=== PATIENT | male | born 1980 | race Caucasian/White ===

== ENCOUNTER 2017-02-28 20:25 | Observation (INO) | payer MEDICARE, MEDICAID ==
[~2017-02-28] VITALS: Ht 182.9 cm; Wt 104.5 kg
[2017-02-28] MEDS ORDERED: ZIPRASIDONE 20 MG INJ IM ONE ×2 (20:34→21:00)
[2017-02-28] MEDS: PLEASE ENTER HEIGHT AND WEIGHT MC SCH (21:00)
[2017-02-28 21:54] LABS: ASPARTATE AMINO TRANSFERASE 38 U/L (15-37); BLOOD UREA NITROGEN 16 mg/dL (7-18)
[2017-02-28 21:56] LABS: ACETAMINOPHEN < 2 mcg/mL (10-30); HEMOGLOBIN 13.2 g/dL (13.7-18.0); WHITE BLOOD COUNT 10.9 x10^3/uL (3.4-10)
[2017-03-01] MEDS: PLEASE ENTER ALLERGIES MC SCH ×4 (00:21→03:33)
[2017-03-01] MEDS ORDERED: EPINEPHRINE 1 MG/ML, 1ML ONE (00:49)
[2017-03-01 02:06] LABS: DAU SCREEN DISCLAIMER
[2017-03-01] MEDS ORDERED: LORazepam 1MG TABLET ONE (03:27)
[2017-03-01] MEDS ORDERED: LORazepam 1MG TABLET PO ONE (03:30)
[2017-03-01] MEDS: PLEASE ENTER HEIGHT AND WEIGHT MC SCH (05:00)
[2017-03-01] MEDS: OLANZAPINE 2.5 MG TABLET PO SCH ×2 (06:01→07:10)
[2017-03-02] MEDS ORDERED: POTASSIUM CHLORIDE 20 MEQ TAB.ER.PRT ONE (05:29)
[2017-03-02] MEDS ORDERED: POTASSIUM CHLORIDE 20 MEQ TAB.ER.PRT PO ONE (05:30)
[2017-03-02] MEDS ORDERED: ACETAMINOPHEN 325 MG TABLET PO PRN ×2 (08:30→18:30)
[2017-03-02] MEDS ORDERED: ONDANSETRON ODT 4 MG PO PRN ×2 (08:30→18:30)
[2017-03-02] MEDS: ENOXAPARIN 40 MG/0.4 ML SQ SCH (08:30)
[2017-03-02] MEDS ORDERED: DOCUSATE 100 MG CAPSULE PO PRN ×2 (08:30→18:30)
[2017-03-02] MEDS: NICOTINE 21 MG/24 HR PATCH.TD24 TD SCH (08:30)
[2017-03-02 08:55] VITALS: BP 110/51
[2017-03-02] MEDS: OLANZAPINE 2.5 MG TABLET PO SCH ×3 (09:00→20:31)
[2017-03-02 09:08] VITALS: BP 110/51
[2017-03-02] MEDS: HYDROcodone/APAP 5/325 TABLET PO PRN (11:19)
[2017-03-02 19:37] VITALS: BP 117/70
[2017-03-03 08:00] VITALS: BP 122/80
[2017-03-03] MEDS: HYDROcodone/APAP 5/325 TABLET PO PRN (09:00)
[2017-03-03] MEDS: ENOXAPARIN 40 MG/0.4 ML SQ SCH (09:00)
[2017-03-03] MEDS: OLANZAPINE 2.5 MG TABLET PO SCH ×2 (09:01→20:29)
[2017-03-03] MEDS: NICOTINE 21 MG/24 HR PATCH.TD24 TD SCH (09:01)
[2017-03-03] MEDS ORDERED: OLAN2.5T10 PO (11:11)
[2017-03-03 19:23] VITALS: BP 95/58
[2017-03-03 20:12] VITALS: BP 125/64
[2017-03-04 07:03] VITALS: BP 105/60
[2017-03-04] MEDS: NICOTINE 21 MG/24 HR PATCH.TD24 TD SCH (09:26)
[2017-03-04] MEDS: OLANZAPINE 2.5 MG TABLET PO SCH ×2 (09:26→20:33)
[2017-03-04] MEDS: ENOXAPARIN 40 MG/0.4 ML SQ SCH (09:26)
[2017-03-04] MEDS: HYDROcodone/APAP 5/325 TABLET PO PRN (09:26)
[2017-03-04 19:27] VITALS: BP 118/71
[2017-03-05 08:00] VITALS: BP 117/67
[2017-03-05] MEDS: NICOTINE 21 MG/24 HR PATCH.TD24 TD SCH (08:30)
[2017-03-05 08:37] VITALS: BP 101/67
[2017-03-05] MEDS: ENOXAPARIN 40 MG/0.4 ML SQ SCH (09:18)
[2017-03-05] MEDS: OLANZAPINE 2.5 MG TABLET PO SCH ×2 (09:25→21:43)
[2017-03-05 19:41] VITALS: BP 98/49
[2017-03-06 07:59] VITALS: BP 118/71
[2017-03-06] MEDS: NICOTINE 21 MG/24 HR PATCH.TD24 TD SCH (08:59)
[2017-03-06] MEDS: ENOXAPARIN 40 MG/0.4 ML SQ SCH (08:59)
[2017-03-06] MEDS: OLANZAPINE 2.5 MG TABLET PO SCH ×2 (09:00→20:05)
[2017-03-06 19:38] VITALS: BP 108/76
[2017-03-07 07:44] VITALS: BP 106/68
[2017-03-07] MEDS: NICOTINE 21 MG/24 HR PATCH.TD24 TD SCH (07:47)
[2017-03-07] MEDS: OLANZAPINE 2.5 MG TABLET PO SCH ×2 (07:47→20:03)
[2017-03-07] MEDS: ENOXAPARIN 40 MG/0.4 ML SQ SCH (07:49)
[2017-03-07 13:44] LABS: HEMATOCRIT 44.9 % (39.2-51.8); WHITE BLOOD COUNT 6.6 x10^3/uL (3.4-10)
[2017-03-07] MEDS: HYDROcodone/APAP 5/325 TABLET PO PRN (19:00)
[2017-03-07 19:46] VITALS: BP 97/63
[2017-03-08 08:12] VITALS: BP 99/55
[2017-03-08] MEDS: ENOXAPARIN 40 MG/0.4 ML SQ SCH (08:30)
[2017-03-08] MEDS: OLANZAPINE 2.5 MG TABLET PO SCH (08:32)
[2017-03-08] MEDS: NICOTINE 21 MG/24 HR PATCH.TD24 TD SCH (08:33)
[2017-03-08] MEDS: HYDROcodone/APAP 5/325 TABLET PO PRN (09:43)
== END 2017-03-08 09:45 ==
LOC: ED 20:54 → EDIP 03-02 06:09 → 3E 03-02 08:51
PROVIDERS: ADMIT Internal Medicine; ATTEND Internal Medicine
DX: F30.2 Manic episode, severe with psychotic symptoms (principal); E87.6 Hypokalemia; D63.8 Anemia in other chronic diseases classified elsewhere; F15.99 Other stimulant use, unspecified with unspecified stimulant-induced disorder; F17.210 Nicotine dependence, cigarettes, uncomplicated; R44.3 Hallucinations, unspecified; Z59.0 Homelessness; Z78.1 Physical restraint status; Z81.8 Family history of other mental and behavioral disorders
CPT/HCPCS: 36415; 80053; 80307; 80329; 82140; 83735; 84132; 84443; 85025; 96372; 99285; G0378; J1650; J3486; G0480

== ENCOUNTER 2017-03-26 09:31 | Emergency (ER) | payer MEDICARE, MEDICAID ==
[~2017-03-26] VITALS: Ht 177.8 cm; Wt 108.0 kg
[~2017-03-26 09:31] MED LIST: OLAN2.5T10 PO
[2017-03-26] MEDS ORDERED: Risperidone PO (09:39)
[2017-03-26] MEDS ORDERED: ZIPRASIDONE 20 MG INJ IM ONE ×4 (09:47→23:00)
[2017-03-26] MEDS ORDERED: PLEASE ENTER HEIGHT AND WEIGHT MC SCH (10:00)
[2017-03-26 10:28] LABS: HEMATOCRIT 38.4 % (39.2-51.8); HEMOGLOBIN 13.3 g/dL (13.7-18.0); WHITE BLOOD COUNT 11.5 x10^3/uL (3.4-10)
[2017-03-26 10:40] LABS: ASPARTATE AMINO TRANSFERASE 26 U/L (15-37); BLOOD UREA NITROGEN 22 mg/dL (7-18)
[2017-03-26 10:48] LABS: ACETAMINOPHEN < 2 mcg/mL (10-30)
[2017-03-26 12:12] LABS: DAU SCREEN DISCLAIMER
[2017-03-27] MEDS ORDERED: HALOPERIDOL 5 MG/ML IM ONE (01:30)
[2017-03-27] MEDS ORDERED: LORazepam 2 MG/ML, 1ML IM ONE (01:30)
[2017-03-27] MEDS ORDERED: DIPHENHYDRAMINE 50 MG/ML, 1ML IM ONE (01:30)
[2017-03-27] MEDS ORDERED: LORazepam 2 MG/ML, 1ML ONE (01:47)
[2017-03-27] MEDS ORDERED: DIPHENHYDRAMINE 50 MG/ML, 1ML ONE (01:48)
[2017-03-27] MEDS ORDERED: HALOPERIDOL 5 MG/ML ONE (01:48)
[2017-03-28 08:55] VITALS: BP 132/66
== END 2017-03-28 09:42 | disposition home or self-care (01) ==
LOC: ED 15:00
DX: F15.959 Other stimulant use, unspecified with stimulant-induced psychotic disorder, unspecified (principal); F22 Delusional disorders; F41.9 Anxiety disorder, unspecified
CPT/HCPCS: 36415; 80053; 80307; 80329; 85025; 93005; 96372; 99285; J1200; J1630; J2060; J3486; G0479; G0480

== ENCOUNTER 2017-08-13 15:02 | Emergency (ER) | payer MEDICARE, MEDICAID ==
[~2017-08-13] VITALS: Ht 182.9 cm; Wt 100.0 kg
[~2017-08-13 15:02] MED LIST changes: +Risperidone PO
[2017-08-13 15:56] LABS: BASOPHILS # (AUTO) 0.05 x10^3/uL (0-0.1); BASOPHILS % (AUTO) 1 % (0-1); EOSINOPHILS # (AUTO) 0.03 x10^3/uL (0-0.4); EOSINOPHILS % (AUTO) 0 % (1-7); LYMPHOCYTES # (AUTO) 1.11 x10^3/uL (1-3.4); LYMPHOCYTES % (AUTO) 14 % (22-44); MD NO; MEAN CORPUSCULAR HEMOGLOBIN 29.5 pg (27.5-34.5); MEAN CORPUSCULAR HGB CONC 33.3 g/dL (33.2-36.2); MEAN CORPUSCULAR VOLUME 88.5 fL (81-97); MEAN PLATELET VOLUME 8.7 fL (7.4-10.4); MONOCYTES # (AUTO) 0.72 x10^3/uL (0.2-0.8); MONOCYTES % (AUTO) 9 % (2-9); NEUTROPHILS # (AUTO) 5.98 x10^3/uL (1.8-6.8); NEUTROPHILS % (AUTO) 76 % (42-75); PLATELET COUNT 218 x10^3/uL (130-400); RED BLOOD COUNT 4.79 x10^6/uL (4.38-5.82)
[2017-08-13 16:08] LABS: ALBUMIN 3.7 g/dL (3.4-5.0); ANION GAP 11 mmol/L (5-15); CALCIUM 8.4 mg/dL (8.5-10.1); CHLORIDE 106 mmol/L (98-107); CREATININE 0.76 mg/dL (0.7-1.3)
[2017-08-13 16:09] LABS: ACETAMINOPHEN < 2 mcg/mL (10-30); SALICYLATE LEVEL < 1.7 mg/dL (2.8-20.0)
[2017-08-13] MEDS ORDERED: ZIPRASIDONE 20 MG INJ IM ONE ×2 (16:30→16:46)
[2017-08-13] MEDS ORDERED: DIPHENHYDRAMINE 50 MG/ML, 1ML ONE (19:43)
[2017-08-13] MEDS ORDERED: LORazepam 2 MG/ML, 1ML ONE (19:43)
[2017-08-13] MEDS ORDERED: LORazepam 2 MG/ML, 1ML IM ONE (20:00)
[2017-08-13] MEDS ORDERED: DIPHENHYDRAMINE 50 MG/ML, 1ML IM ONE (20:00)
[2017-08-13 22:56] LABS: AMPHETAMINE SCREEN, URINE Negative (Negative); BARBITURATE SCREEN, URINE Negative (Negative); BENZODIAZEPINE SCREEN, URINE Positive (Negative); CANNABINOID SCREEN, URINE Negative (Negative); COCAINE SCREEN, URINE Negative (Negative); METHADONE SCREEN, URINE Negative (Negative); OPIATE SCREEN, URINE Negative (Negative)
[2017-08-14] MEDS ORDERED: ZIPRASIDONE 20 MG INJ IM ONE ×2 (00:08→00:30)
[2017-08-14] MEDS ORDERED: HALOPERIDOL 5 MG/ML ONE (03:04)
[2017-08-14] MEDS ORDERED: LORazepam 2 MG/ML, 1ML ONE (03:05)
[2017-08-14] MEDS ORDERED: HALOPERIDOL 5 MG/ML IM ONE (03:30)
[2017-08-14] MEDS ORDERED: ZIPRASIDONE 20 MG INJ IM PRN (03:30)
[2017-08-14] MEDS ORDERED: LORazepam 1MG TABLET PO PRN (03:30)
[2017-08-14] MEDS ORDERED: LORazepam 2 MG/ML, 1ML IM ONE (03:30)
[2017-08-14] MEDS ORDERED: LORazepam 1MG TABLET ONE (07:14)
[2017-08-14] MEDS ORDERED: ZIPRASIDONE 20MG CAPSULE PO SCH (09:00)
[2017-08-14] MEDS ORDERED: ZIPRASIDONE 20MG CAPSULE ONE (10:14)
[2017-08-14 14:06] VITALS: BP 116/68
== END 2017-08-14 16:51 ==
LOC: ED 23:59
DX: F15.159 Other stimulant abuse with stimulant-induced psychotic disorder, unspecified (principal); F22 Delusional disorders
CPT/HCPCS: 36415; 80048; 80307; 80329; 82040; 85025; 96372; 99285; J1200; J1630; J2060; J3486; G0480

== ENCOUNTER 2018-12-21 12:05 | Inpatient (IN) | payer MEDICARE, MEDICAID ==
[~2018-12-21] VITALS: Ht 177.8 cm; Wt 100.0 kg
[2018-12-21] MEDS ORDERED: LORazepam 1MG TABLET PO ONE (12:30)
[2018-12-21] MEDS ORDERED: PLEASE ENTER HEIGHT AND WEIGHT MC SCH (12:30)
--- NOTE | 2018-12-21 12:30 | NUR ---
PT ARRIVES VIA [facility] AFTER BEING FOUND LYING IN STREET. PT REPORTS WANTING "TO BE SMEARED ALL OVER." EXPRESSES FEELINGS OF SHAME AND GUILT AND MAKES STATEMENT ABOUT ANSWERING FOR HIS SINS. HAS A STUTTER WHEN SPEAKING AND FREQUENTLY CHANGES THROUGHT PROCESS MID SENTENCE. EXPRESSES THOUGHTS OF BRINGING DOWN THE GOVERNMENT AND THEN CHANGES TO NOT WANTING TO HURT ANYONE BUT BEING AFRAID THAT HE DID. WHEN ASKED HE STATES THAT HE SAID HURTFUL THINGS BUT DENIES PHYSICALLY HARMING ANYONE. PT BELONGINGS COLLECTED AND SECURED. PT IN HOSPITAL GOWN, GARAGE DOORS TAKEN DOWN. SITTER DOING OBSERVATIONS.
--- NOTE | 2018-12-21 12:41 | NUR ---
ORDERED MEAL TRAY, PROVIDED WATER.
[2018-12-21 12:55] LABS: ALANINE AMINOTRANSFERASE 23 U/L (12-78); ANION GAP 7 mmol/L (5-15); CHLORIDE 110 mmol/L (98-107); CREATININE 0.87 mg/dL (0.7-1.3); SALICYLATE LEVEL 3.5 mg/dL (2.8-20.0)
--- NOTE | 2018-12-21 13:00 | NUR ---
RECEIVED REPORT FROM NICO ALVAREZ AND ASSUMED CARE. PT SITTING ON EDGE OF SHU STATING HE IS THIRSTY. PROVIDED WATER
[2018-12-21 13:05] LABS: ALKALINE PHOSPHATASE 87 U/L (45-117); BILIRUBIN,TOTAL 0.9 mg/dL (0.2-1.0); TOTAL PROTEIN 7.2 g/dL (6.4-8.2)
--- NOTE | 2018-12-21 13:11 | NUR ---
PROVIDED LUNCH TRAY. PT STATES WHEN HE WAS A KID HE HAD THE POWER TO MAKE HIS MOTHER WALK INTO A TV AND THAT HE DIDN'T KNOW HE COULD DO THAT. PT STATES HE NEEDS HELP AND NO ONE IS HELPING HIM. REASSURED PT WE ARE TAKING STEPS TO HELP HIM
[2018-12-21 13:39] LABS: BASOPHILS # (AUTO) 0.02 x10^3/uL (0-0.1); BASOPHILS % (AUTO) 0 % (0-1); EOSINOPHILS # (AUTO) 0.03 x10^3/uL (0-0.4); EOSINOPHILS % (AUTO) 0 % (1-7); LYMPHOCYTES # (AUTO) 1.39 x10^3/uL (1-3.4); LYMPHOCYTES % (AUTO) 19 % (22-44); MD NO; MEAN CORPUSCULAR HEMOGLOBIN 30.4 pg (27.5-34.5); MEAN CORPUSCULAR HGB CONC 33.8 g/dL (33.2-36.2); MEAN CORPUSCULAR VOLUME 89.8 fL (81-97); MEAN PLATELET VOLUME 8.1 fL (7.4-10.4); MONOCYTES # (AUTO) 0.42 x10^3/uL (0.2-0.8); MONOCYTES % (AUTO) 6 % (2-9); NEUTROPHILS # (AUTO) 5.62 x10^3/uL (1.8-6.8); NEUTROPHILS % (AUTO) 75 % (42-75); PLATELET COUNT 271 x10^3/uL (130-400); RED BLOOD COUNT 4.77 x10^6/uL (4.38-5.82); RED CELL DISTRIBUTION WIDTH 13.4 % (9.4-14.8)
--- NOTE | 2018-12-21 13:50 | NUR ---
PT WALKED OUT AMBULANCE BAY AND STARTED WALKING DOWN STREET IN GOWN. 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 PT BACK TO ROOM FOR ONE MINUTE ASKING FOR CLOTHES AND WALKED OUT AGAIN. PT WALKED A SHORT DISTANCE AND THEN ALLOWED A MEDIC TO BRING HIM BACK. PT STATES HE DOES NOT KNOW WHAT TO DO. PT ENCOURAGED TO STAY, ONCE AGAIN STATING WE ARE IN THE PROCESS OF TAKING CARE OF HIM. EXPLAINED TO PATIENT HE CANNOT LEAVE IN JUST A GOWN ONTO THE STREETS. PT BACK IN [facility] TALKING TO HIMSELF
[2018-12-21] MEDS ORDERED: ZIPRASIDONE 20 MG INJ IM ONE ×2 (15:00→15:14)
[2018-12-21 15:04] LABS: AMPHETAMINE SCREEN, URINE Positive (Negative); BARBITURATE SCREEN, URINE Negative (Negative); BENZODIAZEPINE SCREEN, URINE Negative (Negative); CANNABINOID SCREEN, URINE Negative (Negative); COCAINE SCREEN, URINE Negative (Negative); METHADONE SCREEN, URINE Negative (Negative); OPIATE SCREEN, URINE Negative (Negative)
[2018-12-21] MEDS ORDERED: LORazepam 1MG TABLET ONE (15:15)
--- NOTE | 2018-12-21 15:30 | NUR ---
Pt lying in bed, head covered w/ blanket. Pt agrees to take po/IM meds as per emar. Given w/out incident. Sitter remains outside room watching.
--- NOTE | 2018-12-21 15:37 | NUR ---
Pt out of room in hallway, redirected back to room.
--- NOTE | 2018-12-21 15:50 | NUR ---
TELEPSYCH CONSULT CALLED AT [id number] #[id number]
--- NOTE | 2018-12-21 16:31 | NUR ---
PT DROWSY AFTER RECEIVING GEODON. PSYCHIATRIST ATTEMPTING TO INTERVIEW PT VIA TELEPSYCH. UNABLE TO ROUSE PATIENT SUFFICIENTLY.
--- NOTE | 2018-12-21 17:21 | NUR ---
PT SLEEPING. ROOM REMAINS SECURE WITH ALL EQUIPMENT BEHIND SECURED PULL DOWN DOOR. SITTER OUTSIDE ROOM
--- NOTE | 2018-12-21 18:00 | NUR ---
PACKET FAXED TO [facility], [facility] AND [facility]
--- NOTE | 2018-12-21 18:27 | NUR ---
[facility] CALLED. CURRENTLY FULL. WILL KEEP PT IN QUE
--- NOTE | 2018-12-21 18:28 | NUR ---
PER 2N PT NEEDS TO STAY IN ED 24 HOURS SECONDARY TO ELOPEMENT
[2018-12-21] MEDS ORDERED: DOCUSATE 100 MG CAPSULE PO PRN (18:30)
[2018-12-21] MEDS ORDERED: LIDODERM 5% PATCH TD PRN (18:30)
[2018-12-21] MEDS ORDERED: LORazepam 1MG TABLET PO PRN (18:30)
[2018-12-21] MEDS ORDERED: ACETAMINOPHEN 325 MG TABLET PO PRN (18:30)
[2018-12-21] MEDS ORDERED: ONDANSETRON ODT 4 MG PO PRN (18:30)
--- NOTE | 2018-12-21 18:33 | NUR ---
PT SLEEPING, BREATHING EVEN AND UNLABORED. SITTER REMAINS OUTSIDE ROOM
--- NOTE | 2018-12-21 19:40 | NUR ---
PT SLEEPING, BREATHING EVEN AND UNLABORED. BLANKET OVER HEAD. MOVES AROUND IN GURNEY
--- NOTE | 2018-12-21 20:39 | NUR ---
CONTINUES TO SLEEP. CONTINUES TO HAVE SITTER OUTSIDE ROOM
[2018-12-21] MEDS: OLANZAPINE 5 MG TABLET PO SCH (21:00)
--- NOTE | 2018-12-21 21:15 | NUR ---
Note beatrice in EDM - 12/21/18 at 2116 by JOCELYNE REPORT OF PT FROM KIM ROSENTHAL AND ASSUMING CARE OF PT AT THIS TIME. PER PA. MILA.PT NOT TO RECEIVE DOSE OF ZYPREXA UNTIL 0900
--- NOTE | 2018-12-21 21:15 | NUR ---
REPORT OF PT FROM KIM ROSENTHAL AND ASSUMING CARE OF PT AT THIS TIME. PER UPRA ZARAGOZA..PT NOT TO RECEIVE DOSE OF ZYPREXA UNTIL 0900
--- NOTE | 2018-12-21 22:00 | NUR ---
PT ASLEEP IN [facility] AT THIS TIME; NADN. SITTER OUTSIDE OF ROOM FOR DIRECT OBSERVATION.
[2018-12-21] MEDS ORDERED: POTASSIUM CHLORIDE 20 MEQ TAB.ER.PRT PO ONE (22:30)
--- NOTE | 2018-12-21 23:30 | NUR ---
ATTEMPTED TO WAKE PT TO MEDICATED PER MAR. PT UNWILLING TO TAKE POTASSIUM PER MAR AT THIS TIME. WILL ATTEMPT TO MEDICATE PT AGAIN LATER.
--- NOTE | 2018-12-22 00:28 | NUR ---
PT PROVIDED SNACKS AND MEDICATED PER MAR. PT DENIES ANY NEEDS AT THIS TIME. PT WITH SITTER OUTSIDE OF ROOM FOR DIRECT OBSERVATION.
--- NOTE | 2018-12-22 01:40 | NUR ---
pt asleep in [facility] at this time;
--- NOTE | 2018-12-22 03:34 | NUR ---
pt asleep in [facility]. pt has sitter outside of room for direct observation at this time.
--- NOTE | 2018-12-22 04:53 | NUR ---
Lab at . pt refusing to let lab draw morning labs.
--- NOTE | 2018-12-22 05:25 | NUR ---
PT ASLEEP IN [facility] AT THIS TIME; ABHIJEET. SITTER OUTSIDE OF PT ROOM FOR DIRECT OBSERVATION OF PT.
--- NOTE | 2018-12-22 07:12 | NUR ---
RECEIVED REPORT FROM ANTON ALVAREZ. PT SLEEPING AT THIS TIME. ROOM SECURED AND SITTER OUTSIDE ROOM .
--- NOTE | 2018-12-22 07:51 | NUR ---
VITALS DONE AND PT LYING IN BED.
[2018-12-22] MEDS ORDERED: OLANZAPINE 5 MG TABLET ONE (08:20)
[2018-12-22] MEDS ORDERED: LORazepam 1MG TABLET ONE (08:20)
[2018-12-22] MEDS: OLANZAPINE 5 MG TABLET PO SCH (08:21)
--- NOTE | 2018-12-22 08:25 | NUR ---
PT GIVEN ATIVAN. PT WALKING AROUND IN ROOM TALKING TO SELF AND TALKING TO TV. PT COMING OUT OF ROOM FRQUENTLY. PT ENCOURAGED TO STAY IN ROOM. SITTER AT BEDSIDE. SUICIDAL PRECAUTION MEAL TRAY GIVEN TO PT. PT COOPERATIVE AT THIS TIME. MEDS GIVEN PER MD ORDER.
--- NOTE | 2018-12-22 09:54 | NUR ---
pt resting in bed. sitter outside room.
--- NOTE | 2018-12-22 10:09 | NUR ---
Provided report to KIM Stovall on 2N. All questions answered. Pt to transport from ED to 2N to room 261.
--- NOTE | 2018-12-22 10:10 | NUR ---
Received SBAR report from KIM Grant. Pt will go to room 261
[2018-12-22 10:30] VITALS: BP 92/49
[2018-12-22] MEDS ORDERED: THIAMINE 100MG TABLET PO SCH (21:00)
== END 2018-12-22 15:23 | DRG 897 ==
LOC: ED 13:14 → EDIP 17:38 → 2N 12-22 10:32
PROVIDERS: ADMIT Hospitalist; ATTEND Hospitalist
DX: F15.159 Other stimulant abuse with stimulant-induced psychotic disorder, unspecified (principal); R45.851 Suicidal ideations; E44.0 Moderate protein-calorie malnutrition; E87.6 Hypokalemia; F17.213 Nicotine dependence, cigarettes, with withdrawal; E66.9 Obesity, unspecified; F10.20 Alcohol dependence, uncomplicated; F17.210 Nicotine dependence, cigarettes, uncomplicated; F32.9 Major depressive disorder, single episode, unspecified; Z59.0 Homelessness; Z81.8 Family history of other mental and behavioral disorders; Z68.31 Body mass index [BMI] 31.0-31.9, adult
CPT/HCPCS: 36415; 80053; 80307; 84443; 85025; 93005; 99285; J3486

== ENCOUNTER 2019-02-13 08:50 | Emergency (ER) | payer MEDICARE, MEDICAID ==
[~2019-02-13] VITALS: Ht 177.8 cm; Wt 90.0 kg
--- NOTE | 2019-02-13 09:02 | NUR ---
BIB BY MARVIN FROM [employer] AFTER SECURITY ESCORTED HIM FROM PREMISES FOR "ABNORMAL BEHAVIOR". PATIENT REPORTED HX OF SCHIZOAFFECTIVE DISORDER "AND I TAKE MY MEDS." FSBS 102, 130/80 ON ARRIVAL FLAT AFFECT, APPEARS TO RESPONDING TO EXTERNAL STIMULI DENIES ILLICITS/SI/HI
--- NOTE | 2019-02-13 09:02 | NUR ---
REPORT TO DELIA ALVAREZ
[2019-02-13] MEDS ORDERED: HALOPERIDOL 5 MG/ML ONE (09:12)
--- NOTE | 2019-02-13 09:15 | NUR ---
MEDICATED PER EMAR PLACED ON CUSTOMER RELATIONS ASSISTANT PHLEBOTOMY AT BEDSIDE-LABS OBTAINED AT 0917
[2019-02-13 09:23] LABS: BASOPHILS # (AUTO) 0.06 x10^3/uL (0-0.1); BASOPHILS % (AUTO) 1 % (0-1); EOSINOPHILS # (AUTO) 0.01 x10^3/uL (0-0.4); EOSINOPHILS % (AUTO) 0 % (1-7); LYMPHOCYTES # (AUTO) 1.16 x10^3/uL (1-3.4); LYMPHOCYTES % (AUTO) 16 % (22-44); MD NO; MEAN CORPUSCULAR HEMOGLOBIN 30.5 pg (27.5-34.5); MEAN CORPUSCULAR HGB CONC 33.3 g/dL (33.2-36.2); MEAN CORPUSCULAR VOLUME 91.7 fL (81-97); MEAN PLATELET VOLUME 8.1 fL (7.4-10.4); MONOCYTES # (AUTO) 0.51 x10^3/uL (0.2-0.8); MONOCYTES % (AUTO) 7 % (2-9); NEUTROPHILS # (AUTO) 5.52 x10^3/uL (1.8-6.8); NEUTROPHILS % (AUTO) 76 % (42-75); PLATELET COUNT 244 x10^3/uL (130-400); RED CELL DISTRIBUTION WIDTH 13.4 % (9.4-14.8)
[2019-02-13] MEDS ORDERED: HALOPERIDOL 5 MG/ML IM PRN (09:30)
--- NOTE | 2019-02-13 09:32 | NUR ---
PT RESTING IN GURNEY WATCHING TV, PT ON MONITOR. CALL LIGHT WITHIN REACH. URINE WALKED TO LAB
[2019-02-13 09:35] LABS: ALBUMIN 4.1 g/dL (3.4-5.0); ANION GAP 9 mmol/L (5-15); CALCIUM 9.2 mg/dL (8.5-10.1); CHLORIDE 108 mmol/L (98-107); CREATININE 0.88 mg/dL (0.7-1.3); SALICYLATE LEVEL 3.2 mg/dL (2.8-20.0)
[2019-02-13 09:57] LABS: AMPHETAMINE SCREEN, URINE Negative (Negative); BARBITURATE SCREEN, URINE Negative (Negative); BENZODIAZEPINE SCREEN, URINE Negative (Negative); CANNABINOID SCREEN, URINE Negative (Negative); COCAINE SCREEN, URINE Negative (Negative); METHADONE SCREEN, URINE Negative (Negative); OPIATE SCREEN, URINE Negative (Negative)
--- NOTE | 2019-02-13 10:30 | NUR ---
PT RESTING IN [facility] WATCHING TV WITH SHEET OVER HIS HEAD. PER [employer]IKE [employer]ING APPLICATIONS ALL BELONGINGS REMOVED AND PLACED IN PSYCH LOCKER UNTIL PT HAS TELEPSYCH CONSULT. 1 BAG BELONGINGS PLACED IN PSYCH LOCKER AND ROOM SECURED. PT STILL NOT ANSWERING QUESTIONS APPROPRIATELY, PT ASKED WHERE HE WAS AND STATED "THE 7TH LEVEL OF HELL". PT ON MONITOR. AWAITING TELEPSYCH CONSULT
--- NOTE | 2019-02-13 10:46 | NUR ---
soc called for consult
--- NOTE | 2019-02-13 11:14 | NUR ---
REPORT TO SOC
[2019-02-13 11:32] VITALS: BP 101/60
--- NOTE | 2019-02-13 11:35 | NUR ---
PT RESTING IN [place] [facility] ON MONITOR IN SECURED ROOM. PT FINISHED CONSULT WITH SOC, AWAITING POC.
--- NOTE | 2019-02-13 12:30 | NUR ---
REPORT TO DION ALVAREZ, TO SEND PT UPSTAIRS AT 1PM
[2019-02-18] MEDS ORDERED: OLAN10TA9 PO (16:54)
[2019-02-18] MEDS ORDERED: RISP2TAB35 PO (16:54)
[2019-02-18] MEDS ORDERED: ACAM333T7 PO (16:54)
[2019-02-18] MEDS ORDERED: NICO-486 TD (16:54)
[2019-03-17] MEDS ORDERED: PALI234D IM (09:16)
[2019-03-17] MEDS ORDERED: TRAZADONE PO (09:16)
== END 2019-02-14 09:18 ==
LOC: ED 10:15
DX: F22 Delusional disorders (principal); F25.9 Schizoaffective disorder, unspecified; F32.9 Major depressive disorder, single episode, unspecified
CPT/HCPCS: 36415; 80048; 80307; 82040; 85025; 96372; 99285; J1630

== ENCOUNTER 2019-02-13 12:51 | Inpatient (IN) | payer MEDICARE, MEDICAID ==
[~2019-02-13] VITALS: Ht 177.8 cm; Wt 104.1 kg
[2019-02-18 19:39] VITALS: BP 93/55
== END 2019-02-19 10:31 | disposition home or self-care (01) | DRG 885 ==
LOC: 3E 13:40
PROVIDERS: ADMIT Psychiatry & Neurology Psychosomatic Medicine; ATTEND Psychiatry & Neurology Psychosomatic Medicine
DX: F25.0 Schizoaffective disorder, bipolar type (principal); F15.20 Other stimulant dependence, uncomplicated; F22 Delusional disorders; F17.210 Nicotine dependence, cigarettes, uncomplicated; K59.00 Constipation, unspecified; Z79.899 Other long term (current) drug therapy; Z71.51 Drug abuse counseling and surveillance of drug abuser; Z71.6 Tobacco abuse counseling
CPT/HCPCS: 36415; 71045; 80048; 80053; 80061; 80307; 81003; 82040; 82140; 82607; 84439; 84443; 85025; 85651; 86592; 93005; 96372; 99284; 99285; J3486; J1630; J2060

== ENCOUNTER 2019-02-20 17:21 | Emergency (ER) | payer MEDICARE, MEDICAID ==
[~2019-02-20] VITALS: Ht 177.8 cm; Wt 112.0 kg
[2019-02-20 23:36] VITALS: BP 95/56
== END 2019-02-21 03:38 ==
LOC: ED 18:09
DX: F15.951 Other stimulant use, unspecified with stimulant-induced psychotic disorder with hallucinations (principal); F22 Delusional disorders; F32.9 Major depressive disorder, single episode, unspecified; F25.9 Schizoaffective disorder, unspecified
CPT/HCPCS: 36415; 80053; 80307; 81003; 85025; 96372; 99285; J2060; J3486; 99284